=== PATIENT | female | born 1990 | race Caucasian/White ===

== ENCOUNTER 2017-09-29 20:26 | Emergency (ER) | payer SELFPAY ==
[2017-09-29 22:53] LABS: URINE HCG POC HCG NEGATIVE (Negative)
[2017-09-29] MEDS: IV NORMAL SALINE 1000ML BAG 1,000 ML IV (23:15)
[2017-09-29 23:23] LABS: BILIRUBIN,URINE NEGATIVE (NEG); CLARITY,URINE CLEAR; COLOR,URINE YELLOW; GLUCOSE,URINE NEGATIVE (NEG); NITRITE,URINE NEGATIVE (NEG); PROTEIN,URINE NEGATIVE (NEG-TRACE); UROBILINOGEN,URINE 0.2 mg/dL (0.2 mg/dL)
[2017-09-29] MEDS: FAMOTIDINE 20 MG/2 ML VIAL IVP (23:30)
[2017-09-29] MEDS: ONDANSETRON PF 4 MG/2 ML VIAL. IV (23:31)
[2017-09-29 23:35] LABS: ANION GAP 8 (6-14); BLOOD UREA NITROGEN 9 mg/dL (7-20); BUN/CREATININE RATIO 13 (6-20); CALCIUM 9.6 mg/dL (8.5-10.1); CARBON DIOXIDE 30 mmol/L (21-32); CHLORIDE 103 mmol/L (98-107); CREATININE 0.7 mg/dL (0.6-1.0); GFR 98.9; GLUCOSE 97 mg/dL (70-99); POTASSIUM 3.6 mmol/L (3.5-5.1); SODIUM 141 mmol/L (136-145)
[2017-09-29 23:36] LABS: BACTERIA,URINE FEW /HPF (0-FEW); RBC,URINE 0 /HPF (0-2); SQUAMOUS EPITHELIAL CELL,UR MANY /LPF
[2017-09-29 23:42] LABS: ALBUMIN 3.7 g/dL (3.4-5.0); ALBUMIN/GLOBULIN RATIO 0.8 (1.0-1.7); ALK PHOS 67 U/L (46-116); ALT (SGPT) 55 U/L (14-59); AST (SGOT) 32 U/L (15-37); LIPASE 156 U/L (73-393); TOTAL BILIRUBIN 0.2 mg/dL (0.2-1.0); TOTAL PROTEIN 8.5 g/dL (6.4-8.2)
[2017-09-29 23:48] LABS: ADD MAN DIFF? NO
[2017-09-29 23:51] LABS: BASO # 0.2 x10^3/uL (0.0-0.2); BASO % 1 % (0-3); EOS # 0.3 x10^3/uL (0.0-0.7); EOS % 2 % (0-3); HEMATOCRIT 39.9 % (36.0-47.0); HEMOGLOBIN 13.3 g/dL (12.0-15.5); LYMPH # 5.3 x10^3/uL (1.0-4.8); LYMPH % 32 % (24-48); MEAN CORPUSCULAR HEMOGLOBIN 31 pg (25-35); MEAN CORPUSCULAR HGB CONC 33 g/dL (31-37); MEAN CORPUSCULAR VOLUME 93 fL (79-100); MONO # 0.8 x10^3/uL (0.0-1.1); MONO % 5 % (0-9); NEUT % 60 % (31-73); RED CELL DISTRIBUTION WIDTH 13.1 % (11.5-14.5); WHITE BLOOD COUNT 16.6 x10^3/uL (4.0-11.0)
[2017-09-29 23:58] LABS: PLATELET COUNT 238 x10^3/uL (140-400)
[2017-09-29] MEDS: fentaNYL PF VIAL 100 MCG/2 ML VIAL IV (23:58)
== END 2017-09-30 01:32 | disposition home or self-care (01) ==
LOC: ER 09-30 01:32
DX: N10 Acute pyelonephritis (principal); Z90.49 Acquired absence of other specified parts of digestive tract; Z98.51 Tubal ligation status; Z91.013 Allergy to seafood; Z91.018 Allergy to other foods
CPT/HCPCS: 36415; 74176; 80053; 81001; 81025; 83690; 85025; 87086; 96361; 96365; 96375; 99285-25; J0690; J2405; J3010; J7030; S0028

== ENCOUNTER 2018-01-24 00:02 | Emergency (ER) | payer SELFPAY ==
[2018-01-24 00:31] LABS: BILIRUBIN,URINE NEGATIVE (NEG); CLARITY,URINE CLEAR; COLOR,URINE YELLOW; GLUCOSE,URINE NEGATIVE (NEG); NITRITE,URINE NEGATIVE (NEG); PH,URINE 7.5; PROTEIN,URINE NEGATIVE (NEG-TRACE)
[2018-01-24 00:53] LABS: BACTERIA,URINE FEW /HPF (0-FEW); SQUAMOUS EPITHELIAL CELL,UR FEW /LPF; WBC,URINE >40 /HPF (0-4)
[2018-01-24] MEDS: cefTRIAXone IM 1 GM VIAL IM (01:15)
== END 2018-01-24 01:42 | disposition home or self-care (01) ==
LOC: ER 00:02
DX: R42 Dizziness and giddiness (principal); R53.1 Weakness; R50.9 Fever, unspecified; Z91.013 Allergy to seafood; Z91.018 Allergy to other foods; Z90.49 Acquired absence of other specified parts of digestive tract; Z98.51 Tubal ligation status
CPT/HCPCS: 81001; 93005; 96372; 99285-25; J0696

== ENCOUNTER 2018-05-02 17:56 | Emergency (ER) | payer SELFPAY ==
[~2018-05-02] VITALS: Ht 177.8 cm; Wt 81.6 kg
[~2018-05-02 17:56] MED LIST: CEPH-264 PO; HYDR-971 PO; NAPR-683 PO; NITR100C62 PO; ONDA4TAB10 SL
--- NOTE | 2018-05-02 18:12 | PHYS DOC ---
Past Medical History Past Medical History: No Pertinent History Past Surgical History: Cholecystectomy, Tubal ligation Alcohol Use: Occasionally Drug Use: None Adult General Chief Complaint Chief Complaint: MECHANICAL FALL HPI HPI 28-year-old female presents to ER via EMS with complaints of slipping and falling down a small hill will push mowing. Patient is uncertain of LOC. Patient presents with complaints of left ankle pain and neck pain. Patient doesn 't believe lawnmower landed on top of her. Pt received 100mcg Fentanyl IV by EMS with reports of improved pain along with temp. splint and ice pack to left ankle. Pt denies SHARMA, dizziness, vision changes, CP, SOA, abd pain, or N/V. Pt reports she thinks she may have hit head when she landed but isn't for sure- reporting she landed onto grass surface. Pt denies any lawnmower blade contact or open wounds from fall. This provider met EMS/pt on their arrival in room 20- on palp. mid Cspine pt had tenderness without palp. deformity/crepitus- Cspine precautions maintained until CCollar was placed by RN. Review of Systems Review of Systems Constitutional: Denies lethargy- uncertain on LOC during fall Eyes: Denies change in visual acuity, redness, or eye pain [] HENT: Denies facial/head pain Respiratory: Denies cough or shortness of breath [] Cardiovascular: Denies CP GI: Denies abdominal pain, nausea, vomiting : Denies dysuria or hematuria. Denies incontinence Musculoskeletal: Denies back pain. Reports neck and lt ankle pain Integument: Denies bruising/open wounds. Reports swelling lt ankle Neurologic: Denies headache, focal weakness or sensory changes [] All other systems were reviewed and found to be within normal limits, except as documented in this note. Current Medications Current Medications Current Medications Medications (Trade) Dose Ordered Sig/Janet Start Time Stop Time Status Last Admin Dose Admin Acetaminophen/ Hydrocodone Bitart (Lortab 5/325) 1 tab 1X ONCE 05/02/18 20:30 05/02/18 20:31 DC Fentanyl Citrate (Fentanyl 2ml Vial) 50 mcg 1X ONCE 05/02/18 19:00 05/02/18 19:01 DC 05/02/18 19:11 50 MCG Ibuprofen (Motrin) 600 mg 1X ONCE 05/02/18 20:30 05/02/18 20:31 DC Allergies Allergies Allergies Coded Allergies Type Severity Reaction Last Updated Verified Fish Containing Products Allergy Intermediate 01/24/18 Yes coconut Allergy Intermediate 01/24/18 Yes olive oil Allergy Intermediate 01/24/18 Yes Physical Exam Physical Exam Constitutional: Well developed, well nourished, no acute distress, non-toxic appearance. [] HENT: Normocephalic, atraumatic- no visible injuries or tenderness on palp, bilateral ears normal, oropharynx moist, no oral injury, nose normal. [] Eyes: 3mm PERRLA, EOMI, no nystagmus, conjunctiva normal, no discharge. [] Neck: Normal range of motion, tender to palp. mid cervical spine into lt lateral neck- no palp. deformity/crepitus and trachea midline, supple. CCollar placed during initial exam w/midline cervical tenderness Cardiovascular:Heart rate regular rhythm, no murmur [] Lungs & Thorax: Bilateral breath sounds clear to auscultation. Resp. equal/ nonlabored. No chest wall tenderness/visible injury Abdomen: Bowel sounds normal, soft/nondistended- no visible injuries, no tenderness, no rigidity Skin: Warm, dry, no erythema, no rash. [] Back: No tenderness- no midline spinal tenderness or palp. deformity, no CVA tenderness. [] Extremities: Pelvis stable/nontender. No cyanosis, rt LE exam NL full ROM. Lt lateral ankle swelling- no ecchymosis/open wound tender to palp lateral/medial malleolus- decreased ROM- no tenderness in dorsal surface of foot with brisk cap refill- no calcaneus tenderness- tender to palp. in distal tib/fib area with no swelling. Neurologic: Alert and oriented X 3, normal motor function, normal sensory function, no focal deficits noted. [] Psychologic: Affect normal, judgement normal, mood normal. [] Current Patient Data Vital Signs Vital Signs Date Time Temp Pulse Resp B/P (MAP) Pulse Ox O2 Delivery O2 Flow Rate FiO2 05/02/18 19:11 18 98 Room Air 05/02/18 18:04 98.0 105 142/87 (105) 98.0 EKG EKG [] Radiology/Procedures Radiology/Procedures PROCEDURE: CT HEAD AND CERVICAL SPINE WO CT HEAD AND CERVICAL SPINE WO Indication: Patient fell. Hit head. Neck pain. Exposure: One or more of the following individualized dose reduction techniques were utilized for this examination: 1. Automated exposure control 2. Adjustment of the mA and/or kV according to patient size 3. Use of iterative reconstruction technique. Comparison: None are available. Contrast: None HEAD Posterior fossa is unremarkable. No evidence of acute intracranial hemorrhage or abnormal extra-axial fluid collection. No evidence of mass effect or midline shift. Ventricles are symmetric in size and configuration. Moser-white matter distinction is intact. Visualized orbits are unremarkable. Visualized paranasal sinuses and mastoids are clear. No evidence of depressed skull fracture, although a point of impact is not known. Impression:Negative for acute intracranial hemorrhage or mass effect. CERVICAL SPINE C1 ring: Intact Cervico-occipital junction: Intact C1-C2 relationship: Within normal limits Fracture: No acute fracture identified. Spondylosis: No significant degenerative change. Alignment: Reversal of the normal cervical lordosis, can be due to muscle spasm or positioning. Facets: No evidence of perched or locked facet. Prevertebral soft tissues: No significant swelling or hematoma Thyroid: Symmetric Lung apices: Clear Impression: No acute fracture or traumatic subluxation. Electronically signed by: Florentin Brown MD (05/02/2018 7:12 PM) [facility] DICTATED and SIGNED BY: FLORENTIN BROWN MD DATE: 05/02/181903 PROCEDURE: TIBIA FIBULA LEFT Two-view left tibia fibula and 3 view left ankle HISTORY: Pain after a fall today. Fell while mowing lawn. 3 view left ankle Nondisplaced fracture across the medial malleolus. No other acute fracture is seen. No evidence of dislocation. There is soft tissue swelling at the lateral ankle, could indicate soft tissue injury. There is an apparent joint effusion 2 view left tibia fibula No additional fractures are identified. IMPRESSION: 1. Nondisplaced fracture of the medial malleolus. 2. Soft tissue swelling at the lateral ankle could correspond with underlying soft tissue injury. Electronically signed by: Florentin Brown MD (05/02/2018 9:05 PM) [facility] DICTATED and SIGNED BY: FLORENTIN BROWN MD DATE: 05/02/182100 Course & Med Decision Making Course & Med Decision Making Pertinent Imaging studies reviewed. (See chart for details) Patient's case and plan of care was discussed with Dr. Trevizo who viewed the images of left lower extremity- probable bimalleolar fracture with no obvious displaced fractures on tib/fib imaging. 2010: Pt remains A&Ox3 with no neuro deficits- reporting last dose of pain med had improved pain however was starting to wear off. Pt continues to deny head pain, vision change, or dizziness. CCollar was removed w/no acute finding on CT of CSpine. Discussed lt ankle fx with plans for posterior and stirrup splint to lt LE with crutches. Patient remains neuro and vascular intact in left lower extremity. Will provide dose of Ibuprofen and [place] while in ER. Discussed follow-up with orthopedic doctor in next 2-3 days for further care. Will provide referral information on discharge paperwork. Discussed use of NSAIDs as directed on container and will provide patient with [place] prescription with education on medication. Discharge instructions were discussed and education provided on signs and symptoms to return to ER for. Patient verbalized understanding. Following splint application to left lower extremity patient remains neuro and vascular intact with good sensation in left foot and full movement of all toes. Capillary refill brisk in all toes and patient was advised on monitoring vascular condition of lower extremity with education on signs and symptoms to return to ER for. At time of this evaluation patient was in no visible distress and comfortable with home discharge plan as discussed. Dragon Disclaimer Dragon Disclaimer This electronic medical record was generated, in whole or in part, using a voice recognition dictation system. Departure Departure Impression: Primary Impression: Fall Additional Impressions: Cervical strain Bimalleolar fracture of left ankle Disposition: HOME, SELF-CARE Condition: STABLE Referrals: NO PCP (PCP) PIPER YU MD orthopedic doctor Patient Instructions: Bimalleolar Fracture, Ankle, Adult, Undisplaced, Cervical Sprain, Crutch Use, Fall Prevention and Home Safety Additional Instructions: You will need to follow-up with orthopedic doctor in next 2-3 days for follow- up for further care for your fracture. Ibuprofen as directed on container for pain as needed. Crutches to be used until follow- up with orthopedic doctor- no weight bearing on left leg. Scripts Hydrocodone/Apap 5-325 (NORCO 5-325 TABLET) 1 Each Tablet 1 TAB PO PRN Q6HRS, #14 TAB 0 Refills Prov: HARDEEP SMITH APRN 05/02/18 Problem Qualifiers HARDEEP SMITH APRN May 02, 2018 18:12
[2018-05-02] MEDS ORDERED: fentaNYL PF VIAL 100 MCG/2 ML VIAL IV ONE (19:00)
--- NOTE | 2018-05-02 19:16 | RAD ---
CT HEAD AND CERVICAL SPINE WO Indication: Patient fell. Hit head. Neck pain. Exposure: One or more of the following individualized dose reduction techniques were utilized for this examination: 1. Automated exposure control 2. Adjustment of the mA and/or kV according to patient size 3. Use of iterative reconstruction technique. Comparison: None are available. Contrast: None HEAD Posterior fossa is unremarkable. No evidence of acute intracranial hemorrhage or abnormal extra-axial fluid collection. No evidence of mass effect or midline shift. Ventricles are symmetric in size and configuration. Moser-white matter distinction is intact. Visualized orbits are unremarkable. Visualized paranasal sinuses and mastoids are clear. No evidence of depressed skull fracture, although a point of impact is not known. Impression:Negative for acute intracranial hemorrhage or mass effect. CERVICAL SPINE C1 ring: Intact Cervico-occipital junction: Intact C1-C2 relationship: Within normal limits Fracture: No acute fracture identified. Spondylosis: No significant degenerative change. Alignment: Reversal of the normal cervical lordosis, can be due to muscle spasm or positioning. Facets: No evidence of perched or locked facet. Prevertebral soft tissues: No significant swelling or hematoma Thyroid: Symmetric Lung apices: Clear Impression: No acute fracture or traumatic subluxation. Electronically signed by: Florentin Brown MD (05/02/2018 7:12 PM) [facility]
[2018-05-02] MEDS ORDERED: HYDR-971 PO (20:29)
[2018-05-02] MEDS ORDERED: HYDROcodone/APAP 5/325MG 1 TAB TABLET PO ONE (20:30)
[2018-05-02] MEDS ORDERED: IBUPROFEN 600 MG TABLET. PO ONE (20:30)
--- NOTE | 2018-05-02 21:08 | RAD ---
Two-view left tibia fibula and 3 view left ankle HISTORY: Pain after a fall today. Fell while mowing lawn. 3 view left ankle Nondisplaced fracture across the medial malleolus. No other acute fracture is seen. No evidence of dislocation. There is soft tissue swelling at the lateral ankle, could indicate soft tissue injury. There is an apparent joint effusion 2 view left tibia fibula No additional fractures are identified. IMPRESSION: 1. Nondisplaced fracture of the medial malleolus. 2. Soft tissue swelling at the lateral ankle could correspond with underlying soft tissue injury. Electronically signed by: Florentin Brown MD (05/02/2018 9:05 PM) [facility]
[2018-05-02 21:53] VITALS: BP 119/71
== END 2018-05-02 21:55 | disposition home or self-care (01) ==
LOC: ER 17:56
DX: S82.55XA Nondisplaced fracture of medial malleolus of left tibia, initial encounter for closed fracture (principal); S16.1XXA Strain of muscle, fascia and tendon at neck level, initial encounter; Z90.49 Acquired absence of other specified parts of digestive tract; Z98.51 Tubal ligation status; Z91.013 Allergy to seafood; Z91.018 Allergy to other foods; W17.89XA Other fall from one level to another, initial encounter; Y93.89 Activity, other specified; Y92.89 Other specified places as the place of occurrence of the external cause; Y99.8 Other external cause status
CPT/HCPCS: 29515; 70450; 72125; 73590; 73610; 96374; 99284; J3010

== ENCOUNTER 2018-06-30 10:34 | Emergency (ER) | payer SELFPAY ==
[~2018-06-30] VITALS: Ht 157.5 cm; Wt 81.6 kg
[~2018-06-30 10:34] MED LIST changes: +HYDR-3164 PO; -HYDR-971 PO
[2018-06-30] MEDS ORDERED: KETOROLAC 60 MG/2 ML INJ. IM ONE (11:15)
[2018-06-30] MEDS ORDERED: ORPHENADRINE CITRATE 60 MG/2 ML VIAL. IM ONE (11:15)
[2018-06-30 12:07] LABS: BILIRUBIN,URINE NEGATIVE (NEG); CLARITY,URINE CLEAR; COLOR,URINE YELLOW; NITRITE,URINE NEGATIVE (NEG); PROTEIN,URINE NEGATIVE (NEG-TRACE); UROBILINOGEN,URINE 0.2 mg/dL (0.2 mg/dL)
[2018-06-30 12:14] VITALS: BP 121/69
[2018-06-30 12:15] LABS: SQUAMOUS EPITHELIAL CELL,UR FEW /LPF
[2018-06-30 12:16] LABS: BACTERIA,URINE FEW /HPF (0-FEW); RBC,URINE OCC /HPF (0-2)
[2018-06-30] MEDS ORDERED: CEPH500T PO (12:54)
[2018-06-30] MEDS ORDERED: NAPR-514 PO (12:54)
[2018-06-30] MEDS ORDERED: ORPH100T PO (12:54)
--- NOTE | 2018-06-30 12:55 | PHYS DOC ---
Past Medical History Past Medical History: No Pertinent History Past Surgical History: Cholecystectomy, Tubal ligation Alcohol Use: Occasionally Drug Use: None Adult General Chief Complaint Chief Complaint: LOWER EXTREMITY SWELLING HPI HPI Patient evaluated during down time, see paper chart. Review of Systems Review of Systems Current Medications Current Medications Current Medications Medications (Trade) Dose Ordered Sig/Janet Start Time Stop Time Status Last Admin Dose Admin Ketorolac Tromethamine (Toradol Im) 30 mg 1X ONCE 06/30/18 11:15 06/30/18 11:16 DC 06/30/18 12:08 30 MG Orphenadrine Citrate (Norflex) 60 mg 1X ONCE 06/30/18 11:15 06/30/18 11:16 DC 06/30/18 12:08 60 MG Allergies Allergies Allergies Coded Allergies Type Severity Reaction Last Updated Verified Fish Containing Products Allergy Intermediate 01/24/18 Yes coconut Allergy Intermediate 01/24/18 Yes olive oil Allergy Intermediate 01/24/18 Yes Physical Exam Physical Exam Current Patient Data Vital Signs Vital Signs Date Time Temp Pulse Resp B/P (MAP) Pulse Ox O2 Delivery O2 Flow Rate FiO2 06/30/18 12:14 72 16 121/69 (86) 98 Room Air 06/30/18 10:45 97.7 97.7 Lab Values Laboratory Tests Test 06/30/18 11:30 06/30/18 11:38 Urine Collection Type Unknown Urine Color Yellow Urine Clarity Clear Urine pH 7.0 Urine Specific Tebbetts 1.010 Urine Protein Negative mg/dL (NEG-TRACE) Urine Glucose (UA) Negative mg/dL (NEG) Urine Ketones (Stick) Negative mg/dL (NEG) Urine Blood Negative (NEG) Urine Nitrite Negative (NEG) Urine Bilirubin Negative (NEG) Urine Urobilinogen Dipstick 0.2 mg/dL (0.2 mg/dL) Urine Leukocyte Esterase Moderate (NEG) Urine RBC Occ /HPF (0-2) Urine WBC 5-10 /HPF (0-4) Urine Squamous Epithelial Cells Few /LPF Urine Bacteria Few /HPF (0-FEW) POC Urine HCG, Qualitative Hcg negative (Negative) EKG EKG [] Radiology/Procedures Radiology/Procedures [] Course & Med Decision Making Course & Med Decision Making Pertinent Labs and Imaging studies reviewed. (See chart for details) [] Dragon Disclaimer Dragon Disclaimer This electronic medical record was generated, in whole or in part, using a voice recognition dictation system. Departure Departure Impression: Primary Impression: UTI (urinary tract infection) Additional Impression: Acute left-sided back pain with sciatica Disposition: 01 HOME, SELF-CARE Condition: STABLE Referrals: NO PCP (PCP) Patient Instructions: Sciatica, Epev-ar-Oyzy, Urinary Tract Infection, Easy-to- Read Additional Instructions: Fill prescriptions and use as directed. Activity as tolerated. Increase clear fluids, avoid bladder irritants including: caffeine, carbonation, and spicy foods. Follow up with your PCP this week, return to the ER if your symptoms worsen. Scripts Cephalexin (CEPHALEXIN) 500 Mg Tablet 1 TAB PO BID for 7 Days, #14 TAB 0 Refills Prov: ASHLEY OWEN APRN 06/30/18 Orphenadrine Citrate (ORPHENADRINE CITRATE) 100 Mg Tablet.er 1 TAB PO BID PRN for PAIN for 10 Days, #20 TAB 0 Refills Prov: ASHLEY OWEN APRN 06/30/18 Naproxen (NAPROXEN) 500 Mg Tablet 1 TAB PO BID PRN for PAIN for 10 Days, #20 TAB 0 Refills Prov: ASHLEY OWEN APRN 06/30/18 Problem Qualifiers Primary Impression: UTI (urinary tract infection) Urinary tract infection type: site unspecified Hematuria presence: without hematuria Qualified Codes: N39.0 - Urinary tract infection, site not specified ASHLEY OWEN APRN Jun 30, 2018 12:55
== END 2018-06-30 13:03 | disposition home or self-care (01) ==
LOC: ER 10:34
DX: M54.32 Sciatica, left side (principal); N39.0 Urinary tract infection, site not specified; Z90.49 Acquired absence of other specified parts of digestive tract; Z98.51 Tubal ligation status; Z91.013 Allergy to seafood; Z91.018 Allergy to other foods; Z91.048 Other nonmedicinal substance allergy status
CPT/HCPCS: 81001; 81025; 96372; 99283; J1885; J2360

== ENCOUNTER 2018-07-25 10:54 | Emergency (ER) | payer SELFPAY ==
[~2018-07-25] VITALS: Ht 157.5 cm; Wt 90.7 kg
[~2018-07-25 10:54] MED LIST changes: +CEPH500T PO; +NAPR-514 PO; +ORPH100T PO
[2018-07-25 12:30] VITALS: BP 123/77
--- NOTE | 2018-07-25 12:35 | PHYS DOC ---
Past Medical History Past Medical History: No Pertinent History Past Surgical History: Cholecystectomy, Tubal ligation Alcohol Use: Occasionally Drug Use: None Adult General Chief Complaint Chief Complaint: ABNORMAL LABS [facility] Patient is a 28 year old female who presents with positive PPD skin test. 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 She had the TB skin test placed in the left arm 48 hours earlier. She presents to the ER today at the request of whom ever was interpreting her EKG. Patient was told she had a positive result. She has no complaints of cough, shortness of breath, night sweats. She has never been in [facility] [place] [facility]. She has been exposed to nobody that she is aware of who was positive for TB. She has no symptoms. She does complain of an area of redness and swelling of the skin over the left volar forearm. Review of Systems Review of Systems Constitutional: Denies fever or chills Eyes: Denies change in visual acuity, redness HENT: Denies nasal congestion Respiratory: Denies cough or shortness of breath Cardiovascular: No additional information not addressed in HPI GI: Denies abdominal pain, nausea : Denies dysuria or hematuria Musculoskeletal: Denies back pain Integument: Denies rash or skin lesions Neurologic: Denies headache, focal weakness All other systems were reviewed and found to be within normal limits, except as documented in this note. Allergies Allergies Allergies Coded Allergies Type Severity Reaction Last Updated Verified Fish Containing Products Allergy Intermediate 01/24/18 Yes coconut Allergy Intermediate 01/24/18 Yes olive oil Allergy Intermediate 01/24/18 Yes Physical Exam Physical Exam Constitutional: Well developed, well nourished, no acute distress, non-toxic appearance HENT: Normocephalic, atraumatic, bilateral external ears normal, oropharynx moist, Eyes: PERRLA, EOMI, conjunctiva normal Neck: Normal range of motion Cardiovascular:Heart rate regular rhythm, no murmur Lungs & Thorax: Bilateral breath sounds clear Abdomen: Bowel sounds normal, soft, no tenderness Skin: Warm, dry, no erythema, no rash Back: No tenderness Extremities: No tenderness, no edema, area of induration over the volar aspect of the left midforearm. There is erythema extending out from the induration approximately 1-2 cm. Neurologic: Alert and oriented X 3, normal motor function Psychologic: Affect normal Current Patient Data Vital Signs Vital Signs Date Time Temp Pulse Resp B/P (MAP) Pulse Ox O2 Delivery O2 Flow Rate FiO2 07/25/18 12:30 79 17 123/77 (92) 97 Room Air 07/25/18 11:48 97.9 97.9 Lab Values Laboratory Tests Test 07/25/18 12:01 POC Urine HCG, Qualitative Hcg negative (Negative) EKG EKG [] Radiology/Procedures Radiology/Procedures FINDINGS: No pneumothorax identified. Cardiac and mediastinal contours unremarkable. No pulmonary consolidation or acute airspace disease. No acute osseous abnormalities identified. IMPRESSION: No pulmonary consolidation or acute airspace disease. Course & Med Decision Making Course & Med Decision Making Pertinent Labs and Imaging studies reviewed. (See chart for details) 12:25: Patient seen and examined. No distress. No s/s of TB. CXR ordered. 13:10: No acute findings on CXR or indication of active TB infection. No subjective findings concerning for TB. Further conversation with the patient reveals that she has had positive skin testing in the past as well as negative imaging. Plan today is for discharge home. She is advised follow-up with her primary care doctor or the health department. Seek medical treatment if she develops any symptoms TB. Dragon Disclaimer Dragon Disclaimer This electronic medical record was generated, in whole or in part, using a voice recognition dictation system. Departure Departure Disposition: HOME, SELF-CARE Condition: GOOD Referrals: NO PCP (PCP) RA BLUM DO Jul 25, 2018 12:35
--- NOTE | 2018-07-25 12:58 | RAD ---
PROCEDURE: CHEST PA LATERAL CLINICAL INDICATION: +PPD COMPARISON: None FINDINGS: No pneumothorax identified. Cardiac and mediastinal contours unremarkable. No pulmonary consolidation or acute airspace disease. No acute osseous abnormalities identified. IMPRESSION: No pulmonary consolidation or acute airspace disease. Electronically signed by: Dominguez Grey DO (07/25/2018 12:54 PM) [facility]
== END 2018-07-25 13:30 | disposition home or self-care (01) ==
LOC: ER 10:54
DX: R76.11 Nonspecific reaction to tuberculin skin test without active tuberculosis (principal); R22.32 Localized swelling, mass and lump, left upper limb; Z91.013 Allergy to seafood; Z91.018 Allergy to other foods; Z91.048 Other nonmedicinal substance allergy status
CPT/HCPCS: 71046; 81025; 99283

== ENCOUNTER 2018-10-28 09:05 | Emergency (ER) | payer SELFPAY ==
[~2018-10-28] VITALS: Ht 157.5 cm; Wt 104.3 kg
[2018-10-28] MEDS ORDERED: IBUPROFEN 400 MG TABLET. PO ONE (10:45)
--- NOTE | 2018-10-28 11:20 | RAD ---
Chest, PA and Lateral: Technique: PA and lateral views of the chest were obtained. History: Right-sided chest pain. Comparison: None. Findings: The heart and pulmonary vasculature appear within normal limits. The lungs are clear. The pleural margins are clear. Impression: No acute chest process is seen. Electronically signed by: Frandy Huitron MD (10/28/2018 11:16 AM) [id number]
[2018-10-28 11:30] LABS: BILIRUBIN,URINE NEGATIVE (NEG); CLARITY,URINE CLEAR; COLOR,URINE YELLOW; NITRITE,URINE NEGATIVE (NEG); PROTEIN,URINE NEGATIVE (NEG-TRACE); UROBILINOGEN,URINE 0.2 mg/dL (0.2 mg/dL)
[2018-10-28 11:40] LABS: BASO % 0 % (0-3); EOS # 0.1 x10^3/uL (0.0-0.7); EOS % 1 % (0-3); HEMATOCRIT 41.1 % (36.0-47.0); HEMOGLOBIN 13.8 g/dL (12.0-15.5); LYMPH # 2.8 x10^3/uL (1.0-4.8); LYMPH % 31 % (24-48); MEAN CORPUSCULAR HEMOGLOBIN 31 pg (25-35); MEAN CORPUSCULAR HGB CONC 34 g/dL (31-37); MEAN CORPUSCULAR VOLUME 92 fL (79-100); MONO # 0.4 x10^3/uL (0.0-1.1); MONO % 5 % (0-9); NEUT # 5.8 x10^3uL (1.8-7.7); NEUT % 63 % (31-73); PLATELET COUNT 243 x10^3/uL (140-400); RED BLOOD COUNT 4.47 x10^6/uL (3.50-5.40); RED CELL DISTRIBUTION WIDTH 13.4 % (11.5-14.5); WHITE BLOOD COUNT 9.2 x10^3/uL (4.0-11.0)
[2018-10-28 11:46] LABS: CALCIUM 9.4 mg/dL (8.5-10.1); CREATININE 0.6 mg/dL (0.6-1.0); GFR 117.4; POTASSIUM 3.6 mmol/L (3.5-5.1)
--- NOTE | 2018-10-28 11:47 | EKG ---
[facility] [address] [place] [address] Test Date: 2018-10-28 Test Time: 10:16:07 Pat Name: NADIR RODRIGUEZDepartment: Room: Gender: F [employer] Service Engineer: : [id number] Requested By: HARDEEP SMITH Order Number: [id number] Reading MD: Peter Peacock MD Measurements Intervals [place] Rate: 63 P: 0 W[place]: 192 QRS: 2 QRSD: 78 T: 4 QT: 412 QTc: 425 Interpretive Statements SINUS RHYTHM Electronically Signed On 11-01-2018 21:53:35 CDT by Peter Peacock MD
[2018-10-28 11:48] LABS: BACTERIA,URINE MANY /HPF (0-FEW); SQUAMOUS EPITHELIAL CELL,UR MANY /LPF
[2018-10-28 11:49] LABS: WBC,URINE >40 /HPF (0-4)
[2018-10-28] MEDS ORDERED: ERYTHROMYCIN 0.5% OPHTH OINTMENT 1GM TUBE. OS ONE (12:00)
[2018-10-28 12:30] VITALS: BP 115/69
[2018-10-28] MEDS ORDERED: CEPH-264 PO (12:37)
--- NOTE | 2018-10-28 12:37 | PHYS DOC ---
Past Medical History Past Medical History: No Pertinent History Past Surgical History: Cholecystectomy, Tubal ligation Alcohol Use: Occasionally Drug Use: None Adult General Chief Complaint Chief Complaint: OTHER COMPLAINTS HPI HPI 28 y/o female presents to ER for c/o tingling in rt arm/foot. She reports sxs started last night and have been worsening throughout the into this morning. She reports she has had pain in rt side rib/axillary area and tingling into rt upper/lower extremities. She reports she took 2 aspirin this morning 81mg tabs. She denies cough, chest pain, fever, or SOA. She denies recent illness, fall, travel, or injury. She denies urinary sxs. She is not a smoker and denies illicit drug use. Review of Systems Review of Systems Constitutional: Denies fever or chills [] Eyes: Denies change in visual acuity, redness, or eye pain [] HENT: Denies nasal congestion or sore throat [] Respiratory: Denies cough or shortness of breath [] Cardiovascular: Denies CP. Reports lateral side/ribs pain with radiation into rt axillar GI: Denies abdominal pain, nausea, vomiting, bloody stools or diarrhea [] : Denies dysuria or hematuria [] Musculoskeletal: Denies back/neck pain or joint pain Integument: Denies rash or skin lesions [] Neurologic: Denies headache, focal weakness or sensory changes. Reports chronic lt side facial droop in lower eye lid and mouth- no acute changes. Reports tingling in rt upper/lower extremity. Denies decreased sensation or swelling Endocrine: Denies polyuria or polydipsia [] All other systems were reviewed and found to be within normal limits, except as documented in this note. Current Medications Current Medications Current Medications Medications (Trade) Dose Ordered Sig/Janet Start Time Stop Time Status Last Admin Dose Admin Erythromycin (Romycin) 0.25 inch 1X ONCE 10/28/18 12:00 10/28/18 12:10 DC Ibuprofen (Motrin) 600 mg 1X ONCE 10/28/18 10:45 10/28/18 10:46 DC 10/28/18 11:15 600 MG Allergies Allergies Allergies Coded Allergies Type Severity Reaction Last Updated Verified Fish Containing Products Allergy Intermediate 01/24/18 Yes coconut Allergy Intermediate 01/24/18 Yes olive oil Allergy Intermediate 01/24/18 Yes Physical Exam Physical Exam Constitutional: Well developed, well nourished, no acute distress, non-toxic appearance. Clear speech. Steady unassisted gait. 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 HENT: Normocephalic, atraumatic, bilateral ears normal, oropharynx moist, no oral exudates, nose normal. [] Eyes: PERRLA, EOMI- no pain with eye movements, no nystagmus, conjunctiva normal, no discharge. [] Neck: Normal range of motion, no tenderness, supple, no stridor. [] Cardiovascular:Heart rate regular rhythm, no murmur [] Lungs & Thorax: Bilateral breath sounds clear to auscultation-resp. equal/nonlabored. Tender rt lateral ribs into rt axillary- no swelling/palp. deformity/crepitus Abdomen: Bowel sounds normal, soft, no tenderness, no masses, no pulsatile masses. [] Skin: Warm, dry, no erythema, no rash. [] Back: No tenderness, no CVA tenderness. [] Extremities: No tenderness, no cyanosis, no clubbing, ROM intact, no edema. Recreation Leader equal. No drift on neuro exam in all extremities. +sensation bilat. upper/lower extremities Neurologic: Alert and oriented X 3, normal motor function, normal sensory function, no focal deficits noted. [] Psychologic: Affect normal, judgement normal, mood normal. [] Current Patient Data Vital Signs Vital Signs Date Time Temp Pulse Resp B/P (MAP) Pulse Ox O2 Delivery O2 Flow Rate FiO2 10/28/18 12:30 70 115/69 (84) 98 Room Air 10/28/18 09:25 98.5 16 98.5 Lab Values Laboratory Tests Test 10/28/18 11:11 10/28/18 11:12 10/28/18 11:20 Urine Collection Type Unknown Urine Color Yellow Urine Clarity Clear Urine pH 6.0 Urine Specific [place] 1.015 Urine Protein Negative mg/dL (NEG-TRACE) Urine Glucose (UA) Negative mg/dL (NEG) Urine Ketones (Stick) Negative mg/dL (NEG) Urine Blood Negative (NEG) Urine Nitrite Negative (NEG) Urine Bilirubin Negative (NEG) Urine Urobilinogen Dipstick 0.2 mg/dL (0.2 mg/dL) Urine Leukocyte Esterase Moderate (NEG) Urine RBC 1-2 /HPF (0-2) Urine WBC >40 /HPF (0-4) Urine Squamous Epithelial Cells Many /LPF Urine Bacteria Many /HPF (0-FEW) Urine Mucus Slight /LPF POC Urine HCG, Qualitative Hcg negative (Negative) White Blood Count 9.2 x10^3/uL (4.0-11.0) Red Blood Count 4.47 x10^6/uL (3.50-5.40) Hemoglobin 13.8 g/dL (12.0-15.5) Hematocrit 41.1 % (36.0-47.0) Mean Corpuscular Volume 92 fL (79-100) Mean Corpuscular Hemoglobin 31 pg (25-35) Mean Corpuscular Hemoglobin Concent 34 g/dL (31-37) Red Cell Distribution Width 13.4 % (11.5-14.5) Platelet Count 243 x10^3/uL (140-400) Neutrophils (%) (Auto) 63 % (31-73) Lymphocytes (%) (Auto) 31 % (24-48) Monocytes (%) (Auto) 5 % (0-9) Eosinophils (%) (Auto) 1 % (0-3) Basophils (%) (Auto) 0 % (0-3) Neutrophils # (Auto) 5.8 x10^3uL (1.8-7.7) Lymphocytes # (Auto) 2.8 x10^3/uL (1.0-4.8) Monocytes # (Auto) 0.4 x10^3/uL (0.0-1.1) Eosinophils # (Auto) 0.1 x10^3/uL (0.0-0.7) Basophils # (Auto) 0.0 x10^3/uL (0.0-0.2) Sodium Level 142 mmol/L (136-145) Potassium Level 3.6 mmol/L (3.5-5.1) Chloride Level 104 mmol/L (98-107) Carbon Dioxide Level 29 mmol/L (21-32) Anion Gap 9 (6-14) Blood Urea Nitrogen 12 mg/dL (7-20) Creatinine 0.6 mg/dL (0.6-1.0) Estimated GFR (Cockcroft-Gault) 117.4 Glucose Level 115 mg/dL (70-99) H Calcium Level 9.4 mg/dL (8.5-10.1) Troponin I Quantitative < 0.017 ng/mL (0.000-0.055) Laboratory Tests 10/28/18 11:20 Laboratory Tests 10/28/18 11:20 Microbiology 10/28/18 Urine Culture - Final, Complete 10/28/18 Urine Culture Result 1 (HANH) - Final, Complete EKG EKG EKG obtained 10/28/18 at 1016 Interpreted by ER physician Sinus rhythm Rate 63 No STEMI Radiology/Procedures Radiology/Procedures PROCEDURE: CHEST PA & LATERAL Chest, PA and Lateral: Technique: PA and lateral views of the chest were obtained. History: Right-sided chest pain. Comparison: None. Findings: The heart and pulmonary vasculature appear within normal limits. The lungs are clear. The pleural margins are clear. Impression: No acute chest process is seen. Electronically signed by: Frandy Huitron MD (10/28/2018 11:16 AM) [id number] DICTATED and SIGNED BY: FRANDY HUITRON MD DATE: 10/28/18 1116 Course & Med Decision Making Course & Med Decision Making Pertinent Labs and Imaging studies reviewed. (See chart for details) 1225: Pt reports her symptoms have improved some after ibuprofen dose while in the ER. Test results were discussed with patient having UTI otherwise labs unremarkable and EKG with no acute ST elevation or STEMI and troponin was negative <0.017 with sxs starting last night. Patient's heart score was 0. Patient has no primary care physician so will provide with community clinic and physician referral information. At this time patient is in no visible distress with equal nonlabored respirations. Discussed possible nerve related arthralgias or muscle strain- discussed use of tylenol/ibuprofen PRN. Pt had no focal neuro deficits with full use of rt upper/lower extremity. She was A&Ox3 and comfortable with home discharge plan as discussed. Education provided on signs and symptoms to return to ER. Discharge instructions were discussed. Patient to follow-up with primary care physician if symptoms persist or with any concerns. Dragon Disclaimer Dragon Disclaimer This electronic medical record was generated, in whole or in part, using a voice recognition dictation system. Departure Departure Impression: Primary Impression: UTI (urinary tract infection) Additional Impressions: Muscle strain Musculoskeletal chest pain Disposition: HOME, SELF-CARE Condition: STABLE Referrals: NO PCP (PCP) Patient Instructions: Muscle Strain, Musculoskeletal Pain, Urinary Tract Infection Additional Instructions: Drink plenty of water. Tylenol and/or ibuprofen as directed on container for pain control as needed. Ice and heat compress application to affected area every 3-4 hours for 20-30 minutes at a time avoiding direct ice contact with skin. If symptoms persist follow-up with primary care physician for reevaluation and further care. Scripts Cephalexin (KEFLEX) 500 Mg Capsule 1 CAP PO BID, #14 CAP 0 Refills Prov: HARDEEP SMITH APRN 10/28/18 Problem Qualifiers HARDEEP SMITH APRN Oct 28, 2018 12:37
== END 2018-10-28 12:55 | disposition home or self-care (01) ==
LOC: ER 09:05
DX: S29.011A Strain of muscle and tendon of front wall of thorax, initial encounter (principal); N39.0 Urinary tract infection, site not specified; Z90.49 Acquired absence of other specified parts of digestive tract; Z98.51 Tubal ligation status; Z91.013 Allergy to seafood; Z91.018 Allergy to other foods; X58.XXXA Exposure to other specified factors, initial encounter; Y93.89 Activity, other specified; Y92.89 Other specified places as the place of occurrence of the external cause; Y99.8 Other external cause status
CPT/HCPCS: 36415; 71046; 80048; 81001; 81025; 84484; 85025; 87086; 93005; 99284-25